=== PATIENT | female | born 1965 | race Caucasian/White ===

== ENCOUNTER 2023-07-10 04:55 | Inpatient (IN) | payer MEDICAID ==
[~2023-07-10] VITALS: Ht 162.6 cm; Wt 135.2 kg
[2023-07-10 05:04] VITALS: BP_SYST 131; PULSE 102; RESP 22; TEMP 98.3; O2SAT 98
[2023-07-10 05:39] LABS: ERYTHROCYTE SEDIMENTATION RATE 34 MM/HR (0-20)
[2023-07-10 05:42] LABS: BASOPHILS # (AUTO) 0.1 K/uL (0.0-0.2); BASOPHILS % (AUTO) 0.6 % (0.0-2.0); EOSINOPHILS # (AUTO) 0.2 K/uL (0.0-0.4); EOSINOPHILS % (AUTO) 2.3 % (0.0-4.0); HEMATOCRIT 42.6 % (36-48); HEMOGLOBIN 14.6 g/dL (12.0-16.0); LYMPHOCYTES # (AUTO) 3.2 K/uL (1.0-5.5); MEAN CORPUSCULAR HEMOGLOBIN 31 pg (27-31); MEAN CORPUSCULAR HGB CONC 34 % (32-36); MEAN CORPUSCULAR VOLUME 92 fL (79.0-98.0); MONOCYTES # (AUTO) 0.5 K/uL (0.0-1.0); MONOCYTES % (AUTO) 5.3 % (1.7-9.3); NEUTROPHILS # (AUTO) 5.7 K/uL (1.8-7.7); NEUTROPHILS % (AUTO) 58.8 % (40.0-70.0); PLATELET COUNT (AUTO) 344 K/uL (130-430); RED BLOOD CELL COUNT(AUTO) 4.66 MIL/uL (4.2-6.2); RED CELL DISTRIBUTION WIDTH 13.3 % (9.0-15.0); WHITE BLOOD COUNT (AUTO) 9.6 K/uL (4.8-10.8)
[2023-07-10 06:16] LABS: CALCIUM 9.1 mg/dL (8.4-11.0); CREATININE 0.69 mg/dL (0.55-1.30); POTASSIUM 3.7 mmol/L (3.5-5.1)
[2023-07-10] MEDS ORDERED: KETOROLAC TROMETHAMINE 60 MG/2 ML VIAL IM ONE (06:59)
[2023-07-10] MEDS: KETOROLAC TROMETHAMINE 15 MG VIAL IM ONE (07:01)
[2023-07-10] MEDS ORDERED: cefTRIAXone 1 GM IVPB PREMIX 50 ML IV ONE (07:15)
[2023-07-10] MEDS ORDERED: LIDOCAINE 1%, 20 ML MDV 20 ML ONE (08:15)
[2023-07-10] MEDS: cefTRIAXone 1 GM VIAL IM ONE (08:21)
[2023-07-10] MEDS ORDERED: FLO44 (12:00)
[2023-07-10] MEDS ORDERED: IBUP-1970 PO (12:00)
[2023-07-10] MEDS ORDERED: THEO300T45 PO (12:00)
[2023-07-10] MEDS ORDERED: ALBMDI INH (12:00)
[2023-07-10] MEDS ORDERED: PIPERACILLIN/TAZOBACTAM 3.375 GM/VIAL (ZOSYN) IV ONE (15:39)
[2023-07-10] MEDS: D5/0.45 NS 1,000 ML IV ONE (15:47)
[2023-07-10] MEDS: PIPERACILLIN/TAZO 3.375 GM in NS 50 ML IV ONE (15:47)
[2023-07-10] MEDS: MORPHINE 2 MG/ML INJ. SYRINGE IVP ONE (21:09)
[2023-07-10] MEDS: ONDANSETRON HCL 4 MG/2 ML VIAL IVP ONE (21:10)
[2023-07-11 04:44] LABS: BASOPHILS % (AUTO) 0.4 % (0.0-2.0); EOSINOPHILS # (AUTO) 0.2 K/uL (0.0-0.4); EOSINOPHILS % (AUTO) 2.6 % (0.0-4.0); HEMATOCRIT 39.7 % (36-48); HEMOGLOBIN 13.6 g/dL (12.0-16.0); MEAN CORPUSCULAR HEMOGLOBIN 32 pg (27-31); MEAN CORPUSCULAR HGB CONC 34 % (32-36); MEAN CORPUSCULAR VOLUME 92 fL (79.0-98.0); MONOCYTES # (AUTO) 0.4 K/uL (0.0-1.0); MONOCYTES % (AUTO) 4.7 % (1.7-9.3); NEUTROPHILS # (AUTO) 5.2 K/uL (1.8-7.7); NEUTROPHILS % (AUTO) 58.3 % (40.0-70.0); PLATELET COUNT (AUTO) 328 K/uL (130-430); RED BLOOD CELL COUNT(AUTO) 4.31 MIL/uL (4.2-6.2); RED CELL DISTRIBUTION WIDTH 13.6 % (9.0-15.0); WHITE BLOOD COUNT (AUTO) 8.9 K/uL (4.8-10.8)
[2023-07-11 05:18] LABS: CALCIUM 8.3 mg/dL (8.4-11.0); CREATININE 0.74 mg/dL (0.55-1.30); POTASSIUM 3.8 mmol/L (3.5-5.1)
[2023-07-11] MEDS ORDERED: IOHEXOL 350 mgI/mL, 150 ML INFUS..BTL IV ONE (08:04)
[2023-07-11] MEDS: ceFAZolin SODIUM 2 GM in D5W 100 ML IV SCH (15:00)
[2023-07-11] MEDS ORDERED: ceFAZolin SODIUM 1 GM VIAL ONE (15:04)
[2023-07-11 16:22] VITALS: BP_SYST 138; PULSE 82; O2SAT 97
[2023-07-11] MEDS ORDERED: IPRATROPIUM/ALBUTEROL SULFATE 3 ML AMPUL.NEB (DUONEB) ONE (16:32)
[2023-07-11 16:46] VITALS: O2SAT 97
[2023-07-11] MEDS: IPRATROPIUM/ALBUTEROL SULFATE 3 ML AMPUL.NEB (DUONEB) INH ONE (16:46)
[2023-07-11 18:45] VITALS: BP_SYST 142; PULSE 85; RESP 16; TEMP 97.6; O2SAT 97
[2023-07-11] MEDS: IPRATROPIUM/ALBUTEROL SULFATE 3 ML AMPUL.NEB (DUONEB) INH SCH (19:00)
[2023-07-11 20:00] VITALS: BP_SYST 123; PULSE 88; RESP 18; TEMP 97.4; O2SAT 95
[2023-07-11 20:23] VITALS: O2SAT 97
[2023-07-11 21:00] VITALS: BP_SYST 123; PULSE 88; RESP 18; TEMP 97.4
[2023-07-12] VITALS (7 sets, daily range): BP systolic 127–147; PULSE 68–99; RESP 16–20; TEMP 97–98.7; O2SAT 94–99
[2023-07-12 06:18] LABS: BASOPHILS % (AUTO) 0.3 % (0.0-2.0); EOSINOPHILS # (AUTO) 0.2 K/uL (0.0-0.4); HEMATOCRIT 38.8 % (36-48); HEMOGLOBIN 13.3 g/dL (12.0-16.0); LYMPHOCYTES # (AUTO) 3.1 K/uL (1.0-5.5); LYMPHOCYTES % (AUTO) 33.8 % (20.5-51.5); MEAN CORPUSCULAR HEMOGLOBIN 31 pg (27-31); MEAN CORPUSCULAR HGB CONC 34 % (32-36); MEAN CORPUSCULAR VOLUME 91 fL (79.0-98.0); MONOCYTES # (AUTO) 0.6 K/uL (0.0-1.0); MONOCYTES % (AUTO) 6.2 % (1.7-9.3); NEUTROPHILS # (AUTO) 5.2 K/uL (1.8-7.7); NEUTROPHILS % (AUTO) 57.7 % (40.0-70.0); PLATELET COUNT (AUTO) 308 K/uL (130-430); RED BLOOD CELL COUNT(AUTO) 4.26 MIL/uL (4.2-6.2); RED CELL DISTRIBUTION WIDTH 13.4 % (9.0-15.0); WHITE BLOOD COUNT (AUTO) 9.1 K/uL (4.8-10.8)
[2023-07-12 06:32] LABS: CALCIUM 8.6 mg/dL (8.4-11.0); CREATININE 0.62 mg/dL (0.55-1.30); POTASSIUM 3.7 mmol/L (3.5-5.1)
[2023-07-12] MEDS ORDERED: DOXY100T2 PO (11:20)
[2023-07-12] MEDS ORDERED: FURO-150 PO (11:20)
[2023-07-12] MEDS ORDERED: CEPH250C PO (11:20)
[2023-07-12] MEDS ORDERED: SPIR25TA PO (11:21)
[2023-07-12] MEDS: traMADol HCL HCL 50 MG TABLET (ULTRAM) PO PRN (12:25)
[2023-07-12] MEDS: POTASSIUM CHLORIDE 20 MEQ TABLET.ER PO ONE (12:25)
== END 2023-07-12 15:40 | disposition home or self-care (01) | DRG 197 ==
LOC: SED 04:55 → SMU 14:26
PROVIDERS: ADMIT Specialist; ATTEND Specialist
DX: I83.028 Varicose veins of left lower extremity with ulcer other part of lower leg (principal); L03.115 Cellulitis of right lower limb; L97.819 Non-pressure chronic ulcer of other part of right lower leg with unspecified severity; Z68.43 Body mass index [BMI] 50.0-59.9, adult; L03.116 Cellulitis of left lower limb; E66.01 Morbid (severe) obesity due to excess calories; J44.9 Chronic obstructive pulmonary disease, unspecified; I89.0 Lymphedema, not elsewhere classified; Z79.1 Long term (current) use of non-steroidal anti-inflammatories (NSAID); Z79.899 Other long term (current) drug therapy; I83.018 Varicose veins of right lower extremity with ulcer other part of lower leg; L97.829 Non-pressure chronic ulcer of other part of left lower leg with unspecified severity; I73.9 Peripheral vascular disease, unspecified
CPT/HCPCS: 36415; 73620; 75635; 76376; 76700; 80048; 83605; 85025; 85651; 87040; 87081; 93306; 93970; 94640; 94760; 96365; 96372; 99285; J0690; J0696; J1885; J2001; J2270; J2405; J2543; J7060; Q9967